=== PATIENT | male | born 1995 | race Caucasian/White ===

== ENCOUNTER 2020-01-16 12:05 | Emergency (ER) | payer BC, OTHER ==
[2020-01-16] MEDS ORDERED: Fentanyl 100 MCG/2 ML VIAL ONE (12:23)
[2020-01-16] MEDS ORDERED: Adacel (T-DAP) 0.5 ML SYRINGE ONE (12:44)
[2020-01-16] MEDS ORDERED: CEFAZOLIN 1 GM VIAL ONE (12:44)
[2020-01-16] MEDS ORDERED: Gentamicin 80 MG/2 ML VIAL ONE ×2 (12:44→12:47)
[2020-01-16] MEDS ORDERED: Sodium Chloride 0.9% 250 ML 250 ML ONE (12:49)
--- NOTE | 2020-01-16 12:53 | RAD ---
Radiograph right hand 2 views: 01/16/2020 12:29 PM HISTORY: 24-year-old male. Status post penetrating trauma to the hand COMPARISON: None FINDINGS: There is a very comminuted fracture at proximal metaphysis and diaphysis of the fifth metacarpal, wit h moderate to severe displacement of comminuted fracture fragments. There is subcutaneous emphysema. Evaluation of fifth CMC joint is limited because this is only a 2 view study. IMPRESSION: Acute, traumatic, severely comminuted and significantly displaced fracture at base of fifth metacarpa l.
[2020-01-16 13:00] LABS: #Basophils 0.1 thou/uL (0.0-0.2); #Eosinphils 0.1 thou/uL (0.0-0.7); #Lymphocytes 2.5 thou/uL (1.20-3.40); #Monocytes 0.6 thou/uL (0.11-0.59); #Neutrophils 5.5 thou/uL (1.40-6.50); %Lymphocytes 28.3 % (21.0-51.0); %Monocytes 6.9 % (0.0-10.0); %Neutrophils 62.8 % (42.0-75.0); Hemoglobin 14.4 g/dL (14.0-18.0); Mean Corpuscular Hemoglobin 28.2 pg (27.0-31.0); Mean Corpuscular Volume 87.9 fL (78.0-98.0); Mean Platelet Volume 7.8 fL (7.4-10.4); Platelet Count 256 thou/uL (130-400); Red Blood Cell (RBC) Count 5.12 mill/uL (4.70-6.10); White Blood Cell (WBC) Count 8.7 thou/uL (4.8-10.8)
[2020-01-16 13:13] LABS: Anion Gap 14 mmol/L (10-20); BUN (Urea Nitrogen) 20 mg/dL (8.9-20.6); Calc. Creatinine Clearance 0 mL/min (70-130); Calcium 9.3 mg/dL (7.8-10.44); Carbon Dioxide 24 mmol/L (22-29); Chloride 106 mmol/L (98-107); Estimated GFR-MDRD 87; Glucose 101 mg/dL (70-105); Potassium 4.1 mmol/L (3.5-5.1); Sodium 140 mmol/L (136-145)
== END 2020-01-16 13:38 | disposition short-term general hospital (02) ==
LOC: MADERS 12:05
DX: S62.316B Displaced fracture of base of fifth metacarpal bone, right hand, initial encounter for open fracture (principal); S62.314B Displaced fracture of base of fourth metacarpal bone, right hand, initial encounter for open fracture; Z87.891 Personal history of nicotine dependence; W31.1XXA Contact with metalworking machines, initial encounter; Y92.69 Other specified industrial and construction area as the place of occurrence of the external cause; Y99.0 Civilian activity done for income or pay
CPT/HCPCS: 80048; 85025; 90471; 90715; 96365; 96368; 96375; J0690; J1580; J3010; J7050